=== PATIENT | female | born 1985 | race Hispanic/Latino ===

== ENCOUNTER 2017-03-13 09:46 | Outpatient (CLI) | payer OTHER ==
--- NOTE | 2017-03-16 07:39 | Ultrasound Report ---
ULTRASOUND EXTREMITY NONVASCULAR LEFT History: Swelling, Mass, lump in left lower extremity. Findings: Targeted grayscale ultrasound with color Doppler interrogation was performed in the left lower extremity at the site of a palpable masslike lesion. Ultrasound images demonstrate normal appearing subcutaneous and muscular tissues. A venous structure is also present which is patent. There is no evidence for suspicious mass or fluid collection. This may represent a lipoma although it is not clearly demonstrated on the ultrasound images. Impression: No abnormality is identified.
== END 2017-03-13 09:47 | disposition home or self-care (01) ==
LOC: US 09:46
PROVIDERS: ATTEND Internal Medicine
DX: R22.42 Localized swelling, mass and lump, left lower limb (principal)